=== PATIENT | male | born 1945 | race Caucasian/White ===

== ENCOUNTER 2022-01-01 14:40 | Inpatient (IN) | payer MEDICARE, BC ==
[2022-01-01 16:41] LABS: #Eosinphils 0.2 thou/uL (0.0-0.7); #Lymphocytes 0.7 thou/uL (1.20-3.40); #Monocytes 0.3 thou/uL (0.11-0.59); #Neutrophils 2.1 thou/uL (1.40-6.50); %Basophils 0.2 % (0.0-1.0); %Eosinophils 7.3 % (0.0-10.0); %Lymphocytes 20.1 % (21.0-51.0); %Monocytes 8.9 % (0.0-10.0); %Neutrophils 63.6 % (42.0-75.0); Hemoglobin 12.8 g/dL (14.0-18.0); Mean Corpuscular HGB CONC 35.3 g/dL (32.0-36.0); Mean Corpuscular Hemoglobin 34.6 pg (27.0-31.0); Mean Corpuscular Volume 98.2 fL (78.0-98.0); RBC Distribution Width 14.8 % (11.5-14.5); Red Blood Cell (RBC) Count 3.71 mill/uL (4.70-6.10); White Blood Cell (WBC) Count 3.3 thou/uL (4.8-10.8)
[2022-01-01 16:51] LABS: ALT (SGPT) 22 U/L (8-55); AST (SGOT) 26 U/L (5-34); Albumin 4.3 g/dL (3.4-4.8); Alkaline Phosphatase 86 U/L (40-110); Anion Gap 17 mmol/L (10-20); BUN (Urea Nitrogen) 18 mg/dL (8.4-25.7); Bilirubin, Total 0.8 mg/dL (0.2-1.2); Calc. Creatinine Clearance 0 mL/min (70-130); Calcium 10.7 mg/dL (7.8-10.44); Carbon Dioxide 24 mmol/L (23-31); Chloride 97 mmol/L (98-107); Estimated GFR 37; Globulin 3.3 g/dL (2.4-3.5); Glucose 336 mg/dL (83-110); Potassium 4.3 mmol/L (3.5-5.1); Protein, Total 7.6 g/dL (5.8-8.1); Sodium 134 mmol/L (136-145)
[2022-01-01 16:53] LABS: MDiff Complete? YES; Macrocytosis SLIGHT = 6-15 cells (100X) (0-5/hpf); Mean Platelet Volume 8.5 fL (7.4-10.4); Ovalocytes SLIGHT = 2-5 cells (100X) (0-1/hpf); Platelet Count 102 thou/uL (130-400); Platelet Morphology Comment Appears Decreased; Polychromasia SLIGHT = 2-3 cells (100X) (0-2/hpf)
[2022-01-01 18:32] LABS: Prothrombin Time 12.9 sec (12.0-14.7)
[2022-01-01 18:33] LABS: PTT 30.7 sec (22.9-36.1)
[2022-01-01 18:43] LABS: Magnesium 2.6 mg/dL (1.6-2.6)
[2022-01-01 19:10] LABS: CKMB 4.9 ng/mL (0-6.6)
[2022-01-01 19:35] LABS: Bilirubin Negative (Negative); Blood, Urine Negative (Negative); Clarity Clear (Clear); Glucose, Urine (Dipstick) 50 mg/dL (Negative); Ketone, Urine Negative (Negative); Leukocyte Negative Leu/uL (Negative); Nitrite Negative (Negative); Protein, Urine (Dipstick) 20 mg/dL (Neg-Trace); Specific Gravity, Urine 1.011 (1.002-1.036); Urobilinogen Normal mg/dL (Less than 2); pH, Urine 5.5 (5.0-9.0)
[2022-01-01] MEDS ORDERED: Aspirin 325 MG TAB ONE (19:52)
[2022-01-01 21:48] VITALS: BMI 24.1
[2022-01-01] MEDS ORDERED: Sodium Chloride 0.9% 1,000 ML IV SCH (22:00)
[2022-01-01] MEDS ORDERED: Acetaminophen 325 MG TAB PO PRN (22:44)
[2022-01-01] MEDS ORDERED: HYDROcodone/Acetaminophen 5/325 mg Tablet PO PRN (22:44)
[2022-01-01] MEDS ORDERED: Dextrose 50% Abboject 50 ML SYRINGE SLOW IVP PRN (22:44)
[2022-01-01] MEDS ORDERED: Bisacodyl 5 MG TAB PO PRN (22:44)
[2022-01-01] MEDS ORDERED: HumaLOG 300 UNITS/3 ML VIAL SC PRN ×2 (22:44)
[2022-01-01] MEDS ORDERED: Dextrose 5% in Water 1,000 ML IV PRN (22:44)
[2022-01-01] MEDS ORDERED: Zolpidem Tartrate 5 MG TAB PO PRN (22:44)
[2022-01-01] MEDS ORDERED: Nitroglycerin 0.4 MG TAB (25 Tab Bottle) SL PRN (22:44)
[2022-01-01] MEDS: Sodium Chloride 0.9% 1,000 ML IV SCH (23:22)
[2022-01-02] MEDS ORDERED: hydrALAZINE 20 MG/ML VIAL SLOW IVP PRN (00:07)
[2022-01-02 01:07] LABS: Troponin I 0.197 ng/mL (< 0.028)
[2022-01-02 02:19] LABS: Creatinine, Urine 93.45 mg/dL (63-166)
[2022-01-02 05:10] LABS: #Eosinphils 0.3 thou/uL (0.0-0.7); #Lymphocytes 0.6 thou/uL (1.20-3.40); #Monocytes 0.3 thou/uL (0.11-0.59); %Basophils 0.3 % (0.0-1.0); %Eosinophils 9.3 % (0.0-10.0); %Lymphocytes 19.7 % (21.0-51.0); %Monocytes 9.5 % (0.0-10.0); %Neutrophils 61.2 % (42.0-75.0); Hemoglobin 12.1 g/dL (14.0-18.0); Mean Corpuscular HGB CONC 33.7 g/dL (32.0-36.0); Mean Corpuscular Hemoglobin 33.4 pg (27.0-31.0); Mean Corpuscular Volume 99.3 fL (78.0-98.0); Mean Platelet Volume 8.5 fL (7.4-10.4); Platelet Count 82 thou/uL (130-400); RBC Distribution Width 14.8 % (11.5-14.5); Red Blood Cell (RBC) Count 3.61 mill/uL (4.70-6.10); White Blood Cell (WBC) Count 3.2 thou/uL (4.8-10.8)
[2022-01-02 05:29] LABS: ALT (SGPT) 19 U/L (8-55); AST (SGOT) 24 U/L (5-34); Albumin 3.8 g/dL (3.4-4.8); Alkaline Phosphatase 77 U/L (40-110); Anion Gap 15 mmol/L (10-20); BUN (Urea Nitrogen) 16 mg/dL (8.4-25.7); Bilirubin, Total 0.7 mg/dL (0.2-1.2); Calc. Creatinine Clearance 45 mL/min (70-130); Carbon Dioxide 22 mmol/L (23-31); Chloride 104 mmol/L (98-107); Estimated GFR 52; Globulin 2.8 g/dL (2.4-3.5); Glucose 216 mg/dL (83-110); Magnesium 2.2 mg/dL (1.6-2.6); Potassium 3.9 mmol/L (3.5-5.1); Protein, Total 6.6 g/dL (5.8-8.1); Sodium 137 mmol/L (136-145)
[2022-01-02] MEDS ORDERED: Enoxaparin Sodium 30 MG/0.3 ML SYRINGE SC SCH (09:00)
[2022-01-02] MEDS: Miconazole 2% Cream 30 GM TUBE TOP SCH ×2 (10:00→23:22)
[2022-01-02] MEDS: Famotidine 20 MG TAB PO SCH (10:10)
[2022-01-02] MEDS: Aspirin Chewable 81 MG TAB PO SCH (10:10)
[2022-01-02] MEDS: Sodium Chloride 0.9% 1,000 ML IV SCH ×3 (10:11→21:08)
[2022-01-02] MEDS: Megestrol Acetate 40 MG TAB PO SCH ×3 (10:11→21:49)
[2022-01-02] MEDS: Carvedilol 6.25 MG TAB PO SCH ×2 (10:11→13:46)
[2022-01-02] MEDS: Alogliptin 6.25 MG TAB PO SCH ×2 (10:11→10:16)
[2022-01-02] MEDS: Amlodipine 10 MG TAB PO SCH ×2 (10:11→13:46)
[2022-01-02] MEDS ORDERED: HumaLOG 300 UNITS/3 ML VIAL SC PRN (10:34)
[2022-01-02] MEDS ORDERED: traMADol HCl 50 MG TAB PO PRN (10:35)
[2022-01-02] MEDS ORDERED: Aquaphor 10 GM TUBE TOP PRN (10:38)
[2022-01-02] MEDS ORDERED: Metoprolol Tartrate 25 MG TAB PO SCH (10:45)
[2022-01-02] MEDS ORDERED: valACYclovir 500 MG TAB PO SCH (11:00)
[2022-01-02] MEDS: Nystatin 500,000 UNITS/5 ML UDCUP SSW SCH ×3 (12:40→21:06)
[2022-01-02] MEDS: Benzocaine (Dental) 7 GM TUBE TOP PRN ×2 (12:40→21:12)
[2022-01-02] MEDS: Metoprolol Tartrate 25 MG TAB PO SCH (18:35)
[2022-01-02] MEDS ORDERED: Metoprolol Tartrate 50 MG TAB PO SCH (21:00)
[2022-01-02] MEDS ORDERED: Tamsulosin HCl 0.4 MG CAP PO SCH (21:00)
[2022-01-02] MEDS: valACYclovir 500 MG TAB PO SCH (21:06)
[2022-01-02] MEDS: hydrALAZINE 20 MG/ML VIAL SLOW IVP PRN (21:12)
[2022-01-02] MEDS: Nystatin Powder 15 GM BOT TOP SCH (21:52)
[2022-01-02] MEDS: Miconazole 2% Vaginal Cream 45 GM TUBE TOP SCH (21:57)
[2022-01-03] MEDS: hydrALAZINE 20 MG/ML VIAL SLOW IVP PRN (05:05)
[2022-01-03 05:23] LABS: #Eosinphils 0.3 thou/uL (0.0-0.7); #Lymphocytes 0.7 thou/uL (1.20-3.40); #Monocytes 0.2 thou/uL (0.11-0.59); #Neutrophils 2.5 thou/uL (1.40-6.50); %Basophils 0.2 % (0.0-1.0); %Eosinophils 8.1 % (0.0-10.0); %Lymphocytes 18.8 % (21.0-51.0); %Neutrophils 66.8 % (42.0-75.0); Hemoglobin 11.9 g/dL (14.0-18.0); Mean Corpuscular HGB CONC 33.8 g/dL (32.0-36.0); Mean Corpuscular Hemoglobin 33.4 pg (27.0-31.0); Mean Corpuscular Volume 98.6 fL (78.0-98.0); Mean Platelet Volume 8.4 fL (7.4-10.4); Platelet Count 73 thou/uL (130-400); RBC Distribution Width 15.1 % (11.5-14.5); Red Blood Cell (RBC) Count 3.57 mill/uL (4.70-6.10); White Blood Cell (WBC) Count 3.8 thou/uL (4.8-10.8)
[2022-01-03 05:25] LABS: Anion Gap 14 mmol/L (10-20); BUN (Urea Nitrogen) 11 mg/dL (8.4-25.7); Calc. Creatinine Clearance 54 mL/min (70-130); Calcium 9.7 mg/dL (7.8-10.44); Carbon Dioxide 21 mmol/L (23-31); Chloride 108 mmol/L (98-107); Estimated GFR 65; Glucose 141 mg/dL (83-110); Potassium 3.5 mmol/L (3.5-5.1); Sodium 139 mmol/L (136-145)
[2022-01-03] MEDS ORDERED: valACYclovir 500 MG TAB PO SCH (09:00)
[2022-01-03] MEDS: Megestrol Acetate 40 MG TAB PO SCH (09:44)
[2022-01-03] MEDS: Famotidine 20 MG TAB PO SCH (09:44)
[2022-01-03] MEDS: valACYclovir 500 MG TAB PO SCH (09:44)
[2022-01-03] MEDS: Aspirin Chewable 81 MG TAB PO SCH (09:44)
[2022-01-03] MEDS: Nystatin 500,000 UNITS/5 ML UDCUP SSW SCH ×2 (09:45→13:21)
[2022-01-03] MEDS: Miconazole 2% Vaginal Cream 45 GM TUBE TOP SCH (09:45)
[2022-01-03] MEDS: Metoprolol Tartrate 25 MG TAB PO SCH (09:45)
[2022-01-03] MEDS: Nystatin Powder 15 GM BOT TOP SCH (09:45)
[2022-01-03 11:00] VITALS: BP 134/62; TEMP 98.1
[2022-01-03] MEDS: Sodium Chloride 0.9% 1,000 ML IV SCH (12:46)
== END 2022-01-03 15:40 | disposition home or self-care (01) | DRG 682 ==
LOC: ERS 14:40 → 2SW 20:41 → OBSVTOIN 01-02 11:25
PROVIDERS: ADMIT Internal Medicine; ATTEND Internal Medicine
DX: N17.9 Acute kidney failure, unspecified (principal); D61.810 Antineoplastic chemotherapy induced pancytopenia; I21.A1 Myocardial infarction type 2; C71.9 Malignant neoplasm of brain, unspecified; E87.1 Hypo-osmolality and hyponatremia; R73.9 Hyperglycemia, unspecified; R53.0 Neoplastic (malignant) related fatigue; R21 Rash and other nonspecific skin eruption; T45.1X5A Adverse effect of antineoplastic and immunosuppressive drugs, initial encounter; E86.0 Dehydration; I12.9 Hypertensive chronic kidney disease with stage 1 through stage 4 chronic kidney disease, or unspecified chronic kidney disease; N18.30 Chronic kidney disease, stage 3 unspecified; N40.0 Benign prostatic hyperplasia without lower urinary tract symptoms; Z79.899 Other long term (current) drug therapy; Z90.49 Acquired absence of other specified parts of digestive tract
CPT/HCPCS: 36415; 36416; 80048; 80053; 81003; 82553; 82570; 83036; 83735; 84300; 84443; 84484; 85025; 85610; 85730; 87593; 93005; 94760; 96360; 96361; 96372; G0378; J0360; J7050; S0179; U0003; U0005